=== PATIENT | female | born 1955 ===

== ENCOUNTER 2021-10-25 09:31 | Day surgery (SDC) | payer OTHER ==
[~2021-10-25 09:31] MED LIST: SIMVASTA PO; SYNTHROID75 MCG PO
== END 2021-10-25 20:00 | disposition home or self-care (01) ==
LOC: CIR.AMB 09:31
PROVIDERS: ATTEND Obstetrics & Gynecology Gynecologic Oncology
DX: N85.00 Endometrial hyperplasia, unspecified (principal); E78.00 Pure hypercholesterolemia, unspecified; E03.9 Hypothyroidism, unspecified; M19.90 Unspecified osteoarthritis, unspecified site